=== PATIENT | female | born 1965 | race Caucasian/White ===

== ENCOUNTER 2021-03-10 09:34 | Outpatient (CLI) | payer BC | END 2021-03-10 09:35 | disposition home or self-care (01) | LOC: CSHULT 09:34 | PROVIDERS: ATTEND Family Medicine | DX: R10.11 Right upper quadrant pain (principal); Z90.49 Acquired absence of other specified parts of digestive tract; N13.30 Unspecified hydronephrosis | CPT/HCPCS: 76700 ==

== ENCOUNTER 2021-03-10 10:15 | Outpatient (CLI) | payer BC | END 2021-03-10 10:16 | disposition home or self-care (01) | LOC: CSHMAMMO 10:15 | PROVIDERS: ATTEND Family Medicine | DX: Z12.31 Encounter for screening mammogram for malignant neoplasm of breast (principal) | CPT/HCPCS: 77063; 77067 ==

== ENCOUNTER 2023-03-16 11:18 | Outpatient (CLI) | payer BC | END 2023-03-16 11:19 | disposition home or self-care (01) | LOC: CSHMAMMO 11:18 | PROVIDERS: ATTEND Family Medicine | DX: Z12.31 Encounter for screening mammogram for malignant neoplasm of breast (principal) | CPT/HCPCS: 77063; 77067 ==